=== PATIENT | female | born 1960 | race Caucasian/White ===

== ENCOUNTER 2016-10-01 09:02 | Day surgery (SDC) | payer BC ==
[~2016-10-01 09:02] MED LIST: CALCIUM500 M3 PO; MULTIVITAMINS1 EAC6 PO
== END 2016-10-01 14:20 ==
LOC: SRG 09:02 → SHSB 09:03 → ORW 11:28 → PACU 12:33 → SHSB 12:50
PROC: 0HX1XZZ Transfer Face Skin, External Approach (ICD-10-PCS; principal; 2016-10-01)
DX: C44.311 Basal cell carcinoma of skin of nose (principal); M19.90 Unspecified osteoarthritis, unspecified site; Z79.899 Other long term (current) drug therapy; Z88.8 Allergy status to other drugs, medicaments and biological substances; Z98.890 Other specified postprocedural states
CPT/HCPCS: J0690